=== PATIENT | female | born 1970 | race Caucasian/White ===

== ENCOUNTER → 2021-05-08 | Outpatient (CLI) | payer OTHER ==
[2021-05-08 13:18] LABS: HEMOGLOBIN 12.7 gm/dl (12.3-15.3); RED BLOOD COUNT 4.09 M/UL (4.00-5.10); WHITE BLOOD COUNT 5.4 K/UL (4.5-11.0)
[2021-05-08 13:44] LABS: BUN/CREATININE RATIO 6 (0-10)
[2021-05-09 17:09] LABS: A/G RATIO 1.9 (0.7-1.7); ALBUMIN 4.2 g/dL (2.9-4.4); ALPHA-1-GLOBULIN 0.1 g/dL (0.0-0.4); ALPHA-2-GLOBULIN 0.6 g/dL (0.4-1.0); BETA GLOBULIN 0.8 g/dL (0.7-1.3); GAMMA GLOBULIN 0.6 g/dL (0.4-1.8); GLOBULIN, TOTAL 2.2 g/dL (2.2-3.9); M-SPIKE Not Observed g/dL (Not Observed); PROTEIN, TOTAL, SERUM 6.4 g/dL (6.0-8.5)
== END ==
LOC: LAB 12:32
PROVIDERS: Internal Medicine
DX: M25.50 Pain in unspecified joint (principal); R53.83 Other fatigue; R21 Rash and other nonspecific skin eruption; R76.8 Other specified abnormal immunological findings in serum; M89.8X9 Other specified disorders of bone, unspecified site
CPT/HCPCS: 36415; 80053; 83520; 84155; 84165; 85025; 86200